=== PATIENT | male | born 1965 ===

== ENCOUNTER 2017-10-02 08:48 | Day surgery (SDC) | payer OTHER ==
[2017-10-02] MEDS ORDERED: Lactated Ringer's 1,000 ML IV ONE (09:15)
[2017-10-02] MEDS ORDERED: Midazolam 2 MG/2 ML VIAL ONE (10:52)
[2017-10-02] MEDS ORDERED: Propofol 10 mg/ml Inj (20 ML) ONE (10:52)
[2017-10-02 11:14] VITALS: TEMP 98
[2017-10-02 11:28] VITALS: BP 117/63; PULSE 86; RESP 14; O2SAT 99
== END 2017-10-02 12:35 | disposition home or self-care (01) ==
LOC: H.ENDO 08:48
PROVIDERS: ATTEND Internal Medicine Gastroenterology
DX: Z12.11 Encounter for screening for malignant neoplasm of colon (principal); E87.5 Hyperkalemia; K21.9 Gastro-esophageal reflux disease without esophagitis; K64.8 Other hemorrhoids
CPT/HCPCS: G0121; J2250; J2704; J7120